=== PATIENT | female | born 1980 | race Caucasian/White ===

== ENCOUNTER 2018-05-28 10:02 | Emergency (ER) | payer OTHER ==
[~2018-05-28] VITALS: Ht 165.1 cm; Wt 83.9 kg
[~2018-05-28 10:02] MED LIST: BENTYL20 MG PO; CEFDINIR300 MG; CYMBALTA60 MG PO; FLONASE 0.05%50 MCG; IBUPROFEN 800800 M1 PO; LOPRESSOR100 M1; MOTION RELIEF25 MG PO; NAPROSYN500 MG PO; ONDANSETRON HCL4 M2 PO; PERCOCET 10-321 EACH PO; PRILOSEC40 MG PO; TEMAZEPAM30 MG PO; XANAX 0.25 MG0.25 MG PO; ZANTAC 15MG/15 MG/ML PO
[2018-05-28 10:13] VITALS: BP 147/78
[2018-05-28] MEDS ORDERED: XANAX1 MG PO (10:30)
== END 2018-05-28 10:32 | disposition home or self-care (01) ==
LOC: M.ERS 10:02
DX: F41.9 Anxiety disorder, unspecified (principal); Z76.0 Encounter for issue of repeat prescription; N80.9 Endometriosis, unspecified; M79.7 Fibromyalgia; G89.29 Other chronic pain; M54.5 Low back pain; R10.2 Pelvic and perineal pain; I10 Essential (primary) hypertension; Z90.710 Acquired absence of both cervix and uterus; Z98.890 Other specified postprocedural states; Z88.8 Allergy status to other drugs, medicaments and biological substances

== ENCOUNTER 2021-02-12 16:07 | Emergency (ER) | payer OTHER ==
[~2021-02-12] VITALS: Ht 165.1 cm; Wt 70.3 kg
[~2021-02-12 16:07] MED LIST changes: +XANAX1 MG PO
[2021-02-12] MEDS ORDERED: ONDANSETRON ODT8 MG PO (17:14)
[2021-02-12] MEDS ORDERED: VENTOLIN HFA 1818 GM INH (17:15)
[2021-02-12 17:16] VITALS: BP 144/89
== END 2021-02-12 17:22 | disposition home or self-care (01) ==
LOC: M.ERS 16:07
DX: U07.1 COVID-19 (principal); I10 Essential (primary) hypertension; Z90.710 Acquired absence of both cervix and uterus; Z90.49 Acquired absence of other specified parts of digestive tract; Z79.899 Other long term (current) drug therapy; Z88.8 Allergy status to other drugs, medicaments and biological substances